=== PATIENT | male | born 1995 | race Caucasian/White ===

== ENCOUNTER 2021-01-13 12:49 | Emergency (ER) | payer MEDICAID, SELFPAY ==
[~2021-01-13] VITALS: Ht 185.4 cm; Wt 67.8 kg
[2021-01-13] MEDS ORDERED: IBUP80TA PO (16:49)
[2021-01-13] MEDS ORDERED: CYCL5TAB PO (16:49)
[2021-01-13] MEDS ORDERED: CYCLOBENZAPRINE 5MG TABLET PO ONE (16:50)
[2021-01-13] MEDS ORDERED: KETOROLAC 60MG 2ML VIAL IM ONE (16:50)
[2021-01-13 17:11] VITALS: BP 118/62
== END 2021-01-13 17:12 | disposition home or self-care (01) ==
LOC: M ED 12:49
DX: G89.29 Other chronic pain (principal); M54.5 Low back pain; F17.210 Nicotine dependence, cigarettes, uncomplicated
CPT/HCPCS: 96372; 99283; J1885